=== PATIENT | male | born 1935 | race Two or more races ===

== ENCOUNTER → 2022-04-13 | Outpatient (CLI) | payer OTHER ==
[2022-04-13 12:52] LABS: Mean Corpuscular Volume 78.3 fL (80.0-100.0)
[2022-04-13 12:54] LABS: Hematocrit 37.4 % (41.0-53.0); Hemoglobin 11.9 g/dL (13.5-17.5); Mean Corpuscular Hgb Conc. 31.9 g/dL (32.0-36.0); Red Blood Cells 4.77 10^6/uL (4.5-5.90); White Blood Cell 3.6 10^3/uL (4.4-10.8)
[2022-04-13 12:57] LABS: Urine Bacteria NONE SEEN /hpf (None Seen); Urine Blood Negative /uL (Negative); Urine Specific Gravity 1.017 (1.001-1.035); Urine WBC 1 /hpf (0 - 3)
[2022-04-13 13:27] LABS: Basophils % (manual) 0 (0.0-2.0); Blast Cells 0; Eosinophils % (manual) 0 (0-7); Metamyelocytes % 0; Myelocytes % 0; Promyelocytes % 0; Reactive Lymphocytes 0
[2022-04-13 14:30] LABS: Band Neutrophils % (manual) 1; Lymphocytes % (manual) 56 (10.0-50.0); Monocytes % (manual) 26 (0-12)
[2022-04-13 14:35] LABS: Albumin 3.1 g/dL (3.4-5.0); BUN/Creatinine Ratio 18.9; Bilirubin, Total 0.7 mg/dL (0.2-1.0); Potassium 4.6 mmol/L (3.5-5.1); Total Protein 8.2 g/dL (6.4-8.2)
== END | disposition home or self-care (01) ==
LOC: LAB 12:26
PROVIDERS: ATTEND Student in an Organized Health Care Education/Training Program
DX: I10 Essential (primary) hypertension (principal); E55.9 Vitamin D deficiency, unspecified; E78.5 Hyperlipidemia, unspecified
CPT/HCPCS: 36415; 80053; 80061; 81001; 82306; 84443; 85007; 85027

== ENCOUNTER 2023-03-15 23:59 | Inpatient (IN) | payer OTHER ==
[~2023-03-15] VITALS: Ht 188 cm; Wt 85.6 kg
[2023-03-16] MEDS ORDERED: LABETALOL HCL 5 MG/ML 4ML SYRINGE IV ONE (00:30)
[2023-03-16 00:35] VITALS: PULSE 80; RESP 34; O2SAT 96
[2023-03-16 01:20] LABS: Mean Corpuscular Hgb Conc. 31.1 g/dL (32.0-36.0)
[2023-03-16 01:23] LABS: Hemoglobin 9.9 g/dL (13.5-17.5); Mean Corpuscular Hemoglobin 26.1 pg (28.0-32.0); Mean Corpuscular Volume 84.1 fL (80.0-100.0); Red Cell Distribution Width 19.8 % (11.8-14.3); White Blood Cell 7.9 10^3/uL (4.4-10.8)
[2023-03-16 02:05] LABS: Basophils % (manual) 0 (0.0-2.0); Blast Cells 0; Eosinophils % (manual) 0 (0-7); Myelocytes % 0; Promyelocytes % 0; Reactive Lymphocytes 0
[2023-03-16 02:17] LABS: Alanine Aminotransferase 36 U/L (7-40); Alkaline Phosphatase 100 U/L (46-116); Anion Gap 12 (5-15); Aspartate Aminotransferase 35 U/L (13-40); Blood Urea Nitrogen 16 mg/dL (9-23); Calcium 8.3 mg/dL (8.7-10.4); Carbon Dioxide 20 mmol/L (20-30); Chloride 105 mmol/L (98-107); Glucose 185 mg/dL (74-106); Potassium 3.5 mmol/L (3.5-5.1); Sodium 137 mmol/L (136-145)
[2023-03-16 02:18] LABS: Albumin 3.8 g/dL (3.2-4.8); Bilirubin, Total 0.9 mg/dL (0.2-1.0); Total Protein 7.8 g/dL (5.7-8.2)
[2023-03-16] MEDS ORDERED: FUROSEMIDE 100 MG/10ML VIAL IV ONE (02:30)
[2023-03-16 02:53] LABS: Band Neutrophils % (manual) 1; Lymphocytes % (manual) 34 (10.0-50.0); Metamyelocytes % 3; Monocytes % (manual) 29 (0-12)
[2023-03-16 02:54] LABS: Anisocytosis Slight; Platelet Estimate Decreased
[2023-03-16] MEDS ORDERED: NITROGLYCERIN 0.4 MG SL TAB SL PRN (03:00)
[2023-03-16] MEDS ORDERED: ACETAMINOPHEN 325 MG TAB PO PRN (03:00)
[2023-03-16] MEDS ORDERED: MORPHINE SULFATE INJ 2 MG/ml SYRG IV PRN (03:00)
[2023-03-16] MEDS ORDERED: ONDANSETRON HCL 4 MG/2 ML VIAL IV PRN (03:00)
[2023-03-16 03:56] LABS: Urine Bacteria FEW /hpf (None Seen); Urine Blood Negative /uL (Negative); Urine Clarity Clear (Clear); Urine Color Colorless (Yellow); Urine Protein, UAD 1+ (Negative); Urine Urobilinogen Normal (Negative); Urine WBC 2 /hpf (0 - 3); Urine pH 5.5 (5.0-8.0)
[2023-03-16] MEDS: ENOXAPARIN SOD 40 MG/0.4 ML SYRINGE SC SCH ×2 (10:00→11:13)
[2023-03-16] MEDS ORDERED: FUROSEMIDE 20 MG/2 ML VIAL IV SCH (10:00)
[2023-03-16] MEDS ORDERED: ASPirin 81 mg TAB PO ONE (10:45)
[2023-03-16] MEDS ORDERED: cefTRIAXone 1GM/50ML D5W 50 ML IV ONE (10:45)
[2023-03-16] MEDS ORDERED: METOPROLOL TARTRATE 25 MG TAB PO ONE (10:45)
[2023-03-16] MEDS: LOSARTAN POTASSIUM 50 MG TAB PO SCH (12:04)
[2023-03-16] MEDS ORDERED: POTASSIUM EFFERVESENT TAB 25 MEQ PO ONE (14:45)
[2023-03-16] MEDS: FUROSEMIDE 20 MG/2 ML VIAL IV SCH ×2 (18:54→21:46)
[2023-03-16] MEDS: DONEPEZIL HYDROCHLORIDE 5 MG TAB PO SCH (21:54)
[2023-03-16] MEDS: ATORVASTATIN 20 MG TAB PO SCH (21:55)
[2023-03-16] MEDS: METOPROLOL TARTRATE 25 MG TAB PO SCH (21:56)
[2023-03-16] MEDS ORDERED: METOPROLOL TARTRATE 25 MG TAB PO SCH (22:00)
[2023-03-16 23:30] VITALS: BP 162/92; PULSE 75; RESP 20; TEMP 98; O2SAT 98
[2023-03-16 23:34] VITALS: BP 162/92; PULSE 75; RESP 20; TEMP 98; O2SAT 98
[2023-03-17] MEDS: hydrALAZINE HCL 20 MG/ML VL IV PRN ×3 (00:15→17:31)
[2023-03-17 05:00] VITALS: BP 148/73; PULSE 68; RESP 18; TEMP 97.9; O2SAT 95
[2023-03-17 06:53] LABS: Alanine Aminotransferase 37 U/L (7-40); Albumin 3.9 g/dL (3.2-4.8); Alkaline Phosphatase 92 U/L (46-116); Anion Gap 8 (5-15); Aspartate Aminotransferase 34 U/L (13-40); BUN/Creatinine Ratio 13.7 (10.0-20.0); Bilirubin, Total 1.1 mg/dL (0.2-1.0); Blood Urea Nitrogen 18 mg/dL (9-23); Calcium 8.9 mg/dL (8.7-10.4); Carbon Dioxide 25 mmol/L (20-30); Chloride 104 mmol/L (98-107); Glucose 83 mg/dL (74-106); Magnesium 1.9 mg/dL (1.6-2.6); Potassium 3.6 mmol/L (3.5-5.1); Sodium 137 mmol/L (136-145); Total Protein 7.9 g/dL (5.7-8.2)
[2023-03-17] MEDS: EMPAGLIFLOZIN 10 MG TAB PO SCH (07:00)
[2023-03-17] MEDS ORDERED: ACETYLCYSTEINE ORAL for CIN 20%(200MG/ML) 4ML PO ONE (07:15)
[2023-03-17 07:23] LABS: Hemoglobin 10.3 g/dL (13.5-17.5)
[2023-03-17 07:25] LABS: Hematocrit 31.8 % (41.0-53.0); Mean Corpuscular Hemoglobin 26.4 pg (28.0-32.0); Mean Corpuscular Hgb Conc. 32.3 g/dL (32.0-36.0); Mean Corpuscular Volume 81.5 fL (80.0-100.0); Red Blood Cells 3.89 10^6/uL (4.5-5.90); Red Cell Distribution Width 19.1 % (11.8-14.3); White Blood Cell 5.5 10^3/uL (4.4-10.8)
[2023-03-17 07:29] LABS: Band Neutrophils % (manual) 0; Basophils % (manual) 0 (0.0-2.0); Metamyelocytes % 0
[2023-03-17 07:30] LABS: Blast Cells 0; Myelocytes % 0; Promyelocytes % 0; Reactive Lymphocytes 0
[2023-03-17 08:00] VITALS: PULSE 71; RESP 18
[2023-03-17 09:01] LABS: Eosinophils % (manual) 2 (0-7); Lymphocytes % (manual) 24 (10.0-50.0); Monocytes % (manual) 43 (0-12); Platelet Estimate Decreased
[2023-03-17] MEDS: ASPirin 81 mg TAB PO SCH (09:02)
[2023-03-17] MEDS: LOSARTAN POTASSIUM 50 MG TAB PO SCH (09:06)
[2023-03-17] MEDS: SPIRONOLACTONE 25 MG TAB PO SCH (09:06)
[2023-03-17] MEDS: METOPROLOL TARTRATE 25 MG TAB PO SCH ×2 (09:07→21:25)
[2023-03-17] MEDS: FUROSEMIDE 20 MG/2 ML VIAL IV SCH ×2 (09:08→21:29)
[2023-03-17] MEDS: cefTRIAXone 1GM/50ML D5W 50 ML IV SCH (09:09)
[2023-03-17] MEDS: ENOXAPARIN SOD 40 MG/0.4 ML SYRINGE SC SCH (09:10)
[2023-03-17] MEDS ORDERED: LORazepam 2MG/ML-1ML VIAL IV ONE (11:00)
[2023-03-17] MEDS ORDERED: OLANZapine 5 MG TAB PO ONE (13:15)
[2023-03-17 17:00] VITALS: BP 191/106; PULSE 85; RESP 17; TEMP 97.5; O2SAT 96
[2023-03-17] MEDS: ISOSORBIDE MONONITRATE ER 60 MG TAB PO SCH (17:30)
[2023-03-17 18:50] VITALS: BP 166/86; PULSE 78
[2023-03-17 20:00] VITALS: PULSE 93
[2023-03-17] MEDS: ATORVASTATIN 20 MG TAB PO SCH (21:21)
[2023-03-17] MEDS: DONEPEZIL HYDROCHLORIDE 5 MG TAB PO SCH (21:24)
[2023-03-17 22:00] VITALS: BP 132/69; PULSE 144; RESP 22; TEMP 97.4; O2SAT 93
[2023-03-18] MEDS: EMPAGLIFLOZIN 10 MG TAB PO SCH (06:46)
[2023-03-18 08:00] VITALS: RESP 18
[2023-03-18] MEDS ORDERED: FURO1TAB33 PO (11:25)
[2023-03-18] MEDS ORDERED: LOSA50TA46 PO (11:25)
[2023-03-18] MEDS ORDERED: ISO60SRT PO (11:25)
[2023-03-18] MEDS ORDERED: EMPA1TAB PO (11:25)
[2023-03-18] MEDS ORDERED: MET25T PO (11:25)
[2023-03-18] MEDS ORDERED: ATOR20TA50 PO (11:25)
[2023-03-18] MEDS ORDERED: DONE5TAB80 PO (11:25)
[2023-03-18] MEDS: cefTRIAXone 1GM/50ML D5W 50 ML IV SCH (11:26)
[2023-03-18] MEDS ORDERED: ASPI-325 PO (11:27)
[2023-03-18] MEDS: METOPROLOL TARTRATE 25 MG TAB PO SCH (11:38)
[2023-03-18] MEDS: ASPirin 81 mg TAB PO SCH (11:38)
[2023-03-18] MEDS: ISOSORBIDE MONONITRATE ER 60 MG TAB PO SCH (11:39)
[2023-03-18] MEDS: SPIRONOLACTONE 25 MG TAB PO SCH (11:40)
[2023-03-18] MEDS: LOSARTAN POTASSIUM 50 MG TAB PO SCH (11:40)
[2023-03-18] MEDS: FUROSEMIDE 20 MG/2 ML VIAL IV SCH (11:40)
[2023-03-18 12:24] VITALS: BP 160/70; PULSE 87; RESP 18; TEMP 36.3; O2SAT 98
[2023-03-18 13:15] VITALS: BP 125/62; PULSE 74; RESP 17; TEMP 98.1; O2SAT 94
[2023-03-19] MEDS ORDERED: ENOXAPARIN SOD 40 MG/0.4 ML SYRINGE SC SCH (10:00)
== END 2023-03-18 15:15 | disposition home or self-care (01) | DRG 280 ==
LOC: EDBD 23:59 → ER 03-16 00:01 → TELE 03-16 03:04 → TELE-WESTW 03-16 23:22
PROVIDERS: ADMIT Nurse Practitioner; ATTEND Nurse Practitioner Acute Care
DX: I13.0 Hypertensive heart and chronic kidney disease with heart failure and stage 1 through stage 4 chronic kidney disease, or unspecified chronic kidney disease (principal); I21.A1 Myocardial infarction type 2; I50.23 Acute on chronic systolic (congestive) heart failure; J18.9 Pneumonia, unspecified organism; J96.01 Acute respiratory failure with hypoxia; F02.83 Dementia in other diseases classified elsewhere, unspecified severity, with mood disturbance; N17.9 Acute kidney failure, unspecified; I16.0 Hypertensive urgency; G30.9 Alzheimer's disease, unspecified; N18.31 Chronic kidney disease, stage 3a; Z79.82 Long term (current) use of aspirin; Z79.899 Other long term (current) drug therapy
CPT/HCPCS: 36415; 70450; 71045; 80053; 81001; 83036; 83735; 83880; 84443; 84484; 85007; 85027; 93005; 93306; 96365; 96375; 99291; G0378; J0696; J3490

== ENCOUNTER 2023-04-12 13:47 | Inpatient (IN) | payer OTHER ==
[~2023-04-12] VITALS: Ht 182.9 cm; Wt 82.0 kg
[~2023-04-12 13:47] MED LIST: ASPI-325 PO; ATOR20TA50 PO; DONE5TAB80 PO; EMPA1TAB PO; FURO1TAB33 PO; ISO60SRT PO; LOSA50TA46 PO; MET25T PO
[2023-04-12 14:52] LABS: Alanine Aminotransferase 25 U/L (7-40); Albumin 3.3 g/dL (3.2-4.8); Alkaline Phosphatase 57 U/L (46-116); Anion Gap 9 (5-15); Aspartate Aminotransferase 25 U/L (13-40); Bilirubin, Total 0.4 mg/dL (0.2-1.0); Blood Urea Nitrogen 71 mg/dL (9-23); Calcium 8.4 mg/dL (8.5-10.1); Carbon Dioxide 23 mmol/L (20-30); Chloride 114 mmol/L (98-107); Glucose 152 mg/dL (74-106); Sodium 146 mmol/L (136-145); Total Protein 6.4 g/dL (5.7-8.2)
[2023-04-12] MEDS ORDERED: ENOXAPARIN SOD 80 MG/0.8ML SYRINGE SC ONE (15:30)
[2023-04-12] MEDS ORDERED: FUROSEMIDE 40 MG/4 ML VIAL IV ONE (15:30)
[2023-04-12 15:59] LABS: Hematocrit 20.1 % (41.0-53.0); Mean Corpuscular Hemoglobin 25.6 pg (28.0-32.0); White Blood Cell 7.6 10^3/uL (4.4-10.8)
[2023-04-12 16:01] LABS: Mean Corpuscular Volume 82.4 fL (80.0-100.0); Red Blood Cells 2.44 10^6/uL (4.5-5.90); Red Cell Distribution Width 18.2 % (11.8-14.3)
[2023-04-12 16:33] LABS: Hemoglobin 6.2 g/dL (13.5-17.5)
[2023-04-12 16:35] LABS: Band Neutrophils % (manual) 0; Basophils % (manual) 0 (0.0-2.0); Blast Cells 0; Eosinophils % (manual) 0 (0-7); Metamyelocytes % 0; Myelocytes % 0; Promyelocytes % 0; Reactive Lymphocytes 0
[2023-04-12] MEDS ORDERED: PANTOPRAZOLE 40 MG/10 ML VIAL INJ IV ONE (17:15)
[2023-04-12] MEDS ORDERED: NITROGLYCERIN 0.4 MG SL TAB SL PRN (17:30)
[2023-04-12] MEDS ORDERED: MORPHINE SULFATE INJ 2 MG/ml SYRG IV PRN (17:30)
[2023-04-12] MEDS ORDERED: ACETAMINOPHEN 325 MG TAB PO PRN (17:30)
[2023-04-12] MEDS ORDERED: ALBUTEROL MEDNEB 2.5 mg/3ml NEB NEB PRN ×2 (17:45→18:00)
[2023-04-12 18:58] VITALS: O2SAT 97
[2023-04-12 19:01] LABS: Base Excess -3.2 mmol/L (-2.0-2.0)
[2023-04-12 19:30] LABS: Folate (Folic Acid) 13.23 ng/mL (>5.38)
[2023-04-12 19:50] LABS: Lymphocytes % (manual) 11 (10.0-50.0); Monocytes % (manual) 18 (0-12)
[2023-04-12 19:51] LABS: Platelet Estimate Decreased
[2023-04-12 20:32] VITALS: BP 148/76; PULSE 88; RESP 18; O2SAT 97
[2023-04-12 21:10] VITALS: RESP 20; O2SAT 100
[2023-04-12] MEDS: SOD CHL 0.45% 1,000 ML IV SCH (21:54)
[2023-04-12] MEDS: ATORVASTATIN 20 MG TAB PO SCH (22:36)
[2023-04-12] MEDS: DONEPEZIL HYDROCHLORIDE 5 MG TAB PO SCH (22:36)
[2023-04-12 22:44] VITALS: BP 142/80; PULSE 90; RESP 18; TEMP 97.7; O2SAT 93
[2023-04-12] MEDS: METOPROLOL TARTRATE 25 MG TAB PO SCH (22:44)
[2023-04-12 23:06] VITALS: PULSE 90; RESP 18; O2SAT 93
[2023-04-13] VITALS (16 sets, daily range): BP systolic 124–170; BP diastolic 56–85; PULSE 67–77; RESP 16–22; TEMP 97.6–98.6; O2SAT 91–98
[2023-04-13 01:32] LABS: Urine WBC None Seen /hpf (0 - 3)
[2023-04-13 01:55] LABS: Urine Bacteria FEW /hpf (None Seen); Urine Blood Negative /uL (Negative); Urine Clarity Clear (Clear); Urine Color Colorless (Yellow); Urine Protein, UAD Negative (Negative); Urine Specific Gravity 1.012 (1.001-1.035); Urine Urobilinogen Normal (Negative)
[2023-04-13 01:58] LABS: Amphetamine Screen, Urine Neg (NEGATIVE)
[2023-04-13 01:59] LABS: Barbiturate Scree,Urine Neg (NEGATIVE); Benzodiazephine Screen, Urine Neg (NEGATIVE); Cannabinoid Screen, Urine Neg (NEGATIVE); Cocaine Screen, Urine Neg (NEGATIVE); Opiate Scree,Urine Neg (NEGATIVE); Phencyclidine Screen, Urine Neg (NEGATIVE)
[2023-04-13] MEDS: EMPAGLIFLOZIN 10 MG TAB PO SCH (06:07)
[2023-04-13 06:51] LABS: Mean Corpuscular Volume 81.3 fL (80.0-100.0); Red Blood Cells 2.58 10^6/uL (4.5-5.90); White Blood Cell 6.8 10^3/uL (4.4-10.8)
[2023-04-13 06:54] LABS: Mean Corpuscular Hemoglobin 26.2 pg (28.0-32.0); Mean Corpuscular Hgb Conc. 32.2 g/dL (32.0-36.0); Red Cell Distribution Width 18.1 % (11.8-14.3)
[2023-04-13 06:55] LABS: Alanine Aminotransferase 23 U/L (7-40); Albumin 3.4 g/dL (3.2-4.8); Alkaline Phosphatase 55 U/L (46-116); Anion Gap 8 (5-15); Aspartate Aminotransferase 26 U/L (13-40); BUN/Creatinine Ratio 41.9 (10.0-20.0); Bilirubin, Total 0.8 mg/dL (0.2-1.0); Blood Urea Nitrogen 62 mg/dL (9-23); Calcium 8.6 mg/dL (8.5-10.1); Carbon Dioxide 24 mmol/L (20-30); Chloride 114 mmol/L (98-107); Glucose 110 mg/dL (74-106); Potassium 3.5 mmol/L (3.5-5.1); Sodium 146 mmol/L (136-145); Total Protein 6.7 g/dL (5.7-8.2)
[2023-04-13 07:46] LABS: Hemoglobin 6.8 g/dL (13.5-17.5)
[2023-04-13 07:47] LABS: Band Neutrophils % (manual) 0; Basophils % (manual) 0 (0.0-2.0); Blast Cells 0; Eosinophils % (manual) 0 (0-7); Metamyelocytes % 0; Myelocytes % 0; Promyelocytes % 0; Reactive Lymphocytes 0
[2023-04-13] MEDS: SOD CHL 0.45% 1,000 ML IV SCH (10:10)
[2023-04-13] MEDS: PANTOPRAZOLE 40 MG/10 ML VIAL INJ IV SCH (11:20)
[2023-04-13] MEDS: ISOSORBIDE MONONITRATE ER 60 MG TAB PO SCH (11:21)
[2023-04-13] MEDS: LOSARTAN POTASSIUM 50 MG TAB PO SCH (11:22)
[2023-04-13] MEDS: FUROSEMIDE 20 MG TAB PO SCH (11:23)
[2023-04-13] MEDS: METOPROLOL TARTRATE 25 MG TAB PO SCH ×2 (11:24→22:04)
[2023-04-13 12:01] LABS: Mean Corpuscular Hemoglobin 26.7 pg (28.0-32.0); Mean Corpuscular Hgb Conc. 32.9 g/dL (32.0-36.0); Red Blood Cells 2.35 10^6/uL (4.5-5.90); Red Cell Distribution Width 18.4 % (11.8-14.3); White Blood Cell 5.5 10^3/uL (4.4-10.8)
[2023-04-13 12:05] LABS: Hemoglobin 6.3 g/dL (13.5-17.5)
[2023-04-13 12:06] LABS: Band Neutrophils % (manual) 0; Basophils % (manual) 0 (0.0-2.0); Blast Cells 0; Metamyelocytes % 0; Myelocytes % 0; Promyelocytes % 0; Reactive Lymphocytes 0
[2023-04-13 12:26] LABS: Lymphocytes % (manual) 17 (10.0-50.0); Monocytes % (manual) 30 (0-12)
[2023-04-13 12:27] LABS: Platelet Estimate Decreased
[2023-04-13 13:37] LABS: Eosinophils % (manual) 1 (0-7); Lymphocytes % (manual) 26 (10.0-50.0); Monocytes % (manual) 22 (0-12); Platelet Estimate Decreased
[2023-04-13 14:18] LABS: INR 1.28 (0.9-1.15); Partial Thromboplastin Time 30.1 SEC (24.5-34.5); Prothrombin Time 13.2 sec (9.3-11.8)
[2023-04-13 15:42] LABS: Triglycerides 64 mg/dL (< 150)
[2023-04-13 15:43] LABS: LDL Cholesterol 62 mg/dL (< 100)
[2023-04-13 15:44] LABS: Cholesterol 98 mg/dL (< 200); HDL Cholesterol 24 mg/dL (40-59)
[2023-04-13 15:45] LABS: % Iron Saturation 14.2 % (20-55)
[2023-04-13 18:21] LABS: Hematocrit 24.4 % (41.0-53.0); Mean Corpuscular Hgb Conc. 32.9 g/dL (32.0-36.0); Red Blood Cells 2.98 10^6/uL (4.5-5.90); Red Cell Distribution Width 17.8 % (11.8-14.3); White Blood Cell 4.9 10^3/uL (4.4-10.8)
[2023-04-13 18:26] LABS: Basophils % (manual) 0 (0.0-2.0); Blast Cells 0; Eosinophils % (manual) 0 (0-7); Promyelocytes % 0; Reactive Lymphocytes 0
[2023-04-13 19:07] LABS: Band Neutrophils % (manual) 7; Lymphocytes % (manual) 16 (10.0-50.0); Metamyelocytes % 6; Monocytes % (manual) 9 (0-12); Myelocytes % 2; Platelet Estimate Decreased
[2023-04-13] MEDS: DONEPEZIL HYDROCHLORIDE 5 MG TAB PO SCH (22:00)
[2023-04-13] MEDS: ATORVASTATIN 20 MG TAB PO SCH (22:00)
[2023-04-14] VITALS (8 sets, daily range): BP systolic 135–190; BP diastolic 67–99; PULSE 64–75; RESP 15–18; TEMP 98.1–98.5; O2SAT 96–100
[2023-04-14] MEDS: EMPAGLIFLOZIN 10 MG TAB PO SCH (06:09)
[2023-04-14 06:27] LABS: Hemoglobin 7.8 g/dL (13.5-17.5)
[2023-04-14 06:29] LABS: Hematocrit 24.1 % (41.0-53.0); Mean Corpuscular Hemoglobin 26.7 pg (28.0-32.0); Mean Corpuscular Hgb Conc. 32.5 g/dL (32.0-36.0); Mean Corpuscular Volume 82.2 fL (80.0-100.0); Red Blood Cells 2.93 10^6/uL (4.5-5.90); Red Cell Distribution Width 17.8 % (11.8-14.3); White Blood Cell 5.5 10^3/uL (4.4-10.8)
[2023-04-14 06:39] LABS: Chloride 112 mmol/L (98-107); Potassium 3.7 mmol/L (3.5-5.1); Sodium 144 mmol/L (136-145)
[2023-04-14 06:40] LABS: Anion Gap 8 (5-15); Calcium 8.2 mg/dL (8.7-10.4); Carbon Dioxide 24 mmol/L (20-30)
[2023-04-14 06:45] LABS: BUN/Creatinine Ratio 30.7 (10.0-20.0); Glucose 82 mg/dL (74-106)
[2023-04-14 06:57] LABS: Blood Urea Nitrogen 39 mg/dL (9-23)
[2023-04-14 07:49] LABS: Band Neutrophils % (manual) 0; Basophils % (manual) 0 (0.0-2.0); Blast Cells 0; Promyelocytes % 0; Reactive Lymphocytes 0
[2023-04-14] MEDS: PANTOPRAZOLE 40 MG/10 ML VIAL INJ IV SCH (09:50)
[2023-04-14] MEDS: METOPROLOL TARTRATE 25 MG TAB PO SCH ×2 (09:51→21:55)
[2023-04-14] MEDS: ISOSORBIDE MONONITRATE ER 60 MG TAB PO SCH (09:51)
[2023-04-14] MEDS: FUROSEMIDE 20 MG TAB PO SCH (09:51)
[2023-04-14] MEDS: LOSARTAN POTASSIUM 50 MG TAB PO SCH (09:51)
[2023-04-14 13:41] LABS: Eosinophils % (manual) 4 (0-7); Large Platelets FEW; Lymphocytes % (manual) 21 (10.0-50.0); Metamyelocytes % 2; Monocytes % (manual) 19 (0-12); Myelocytes % 3
[2023-04-14 13:42] LABS: Platelet Estimate Decrea
[2023-04-14] MEDS ORDERED: amLODIPine BESYLATE 5 MG TAB PO ONE (14:15)
[2023-04-14] MEDS ORDERED: SPIRONOLACTONE 25 MG TAB PO ONE (14:45)
[2023-04-14] MEDS: DONEPEZIL HYDROCHLORIDE 5 MG TAB PO SCH (21:54)
[2023-04-14] MEDS: ATORVASTATIN 20 MG TAB PO SCH (21:54)
[2023-04-14] MEDS: SACUBITRIL-VALSARTAN 24mg/26mg TAB PO SCH (21:54)
[2023-04-15 05:00] VITALS: BP 151/80; PULSE 62; RESP 19; O2SAT 98
[2023-04-15 06:04] LABS: Chloride 108 mmol/L (98-107); Potassium 3.4 mmol/L (3.5-5.1); Sodium 141 mmol/L (136-145)
[2023-04-15 06:05] LABS: Anion Gap 8 (5-15); Calcium 8.4 mg/dL (8.5-10.1); Carbon Dioxide 25 mmol/L (20-30)
[2023-04-15 06:10] LABS: BUN/Creatinine Ratio 21.6 (10.0-20.0); Glucose 88 mg/dL (74-106); Hematocrit 26.8 % (41.0-53.0); Hemoglobin 8.6 g/dL (13.5-17.5); Mean Corpuscular Hemoglobin 26.9 pg (28.0-32.0); Mean Corpuscular Hgb Conc. 32.3 g/dL (32.0-36.0); Mean Corpuscular Volume 83.3 fL (80.0-100.0); Red Blood Cells 3.22 10^6/uL (4.5-5.90); Red Cell Distribution Width 18.2 % (11.8-14.3); White Blood Cell 5.4 10^3/uL (4.4-10.8)
[2023-04-15] MEDS: EMPAGLIFLOZIN 10 MG TAB PO SCH (06:24)
[2023-04-15 06:36] LABS: Band Neutrophils % (manual) 0; Basophils % (manual) 0 (0.0-2.0); Blast Cells 0; Metamyelocytes % 0; Myelocytes % 0; Promyelocytes % 0; Reactive Lymphocytes 0
[2023-04-15 06:54] LABS: Blood Urea Nitrogen 25 mg/dL (9-23)
[2023-04-15 08:00] VITALS: PULSE 63
[2023-04-15 09:03] VITALS: BP 162/80; PULSE 53; RESP 19; O2SAT 99
[2023-04-15 09:50] VITALS: O2SAT 97
[2023-04-15] MEDS: SACUBITRIL-VALSARTAN 24mg/26mg TAB PO SCH (09:59)
[2023-04-15] MEDS: PANTOPRAZOLE 40 MG/10 ML VIAL INJ IV SCH (09:59)
[2023-04-15] MEDS: FUROSEMIDE 20 MG TAB PO SCH (09:59)
[2023-04-15 10:00] LABS: Eosinophils % (manual) 2 (0-7); Lymphocytes % (manual) 28 (10.0-50.0); Monocytes % (manual) 27 (0-12)
[2023-04-15] MEDS ORDERED: SPIRONOLACTONE 25 MG TAB PO SCH (10:00)
[2023-04-15] MEDS: METOPROLOL TARTRATE 25 MG TAB PO SCH (10:00)
[2023-04-15] MEDS ORDERED: amLODIPine BESYLATE 5 MG TAB PO SCH ×2 (10:00)
[2023-04-15] MEDS: ISOSORBIDE MONONITRATE ER 60 MG TAB PO SCH (10:00)
[2023-04-15 10:01] LABS: Platelet Estimate Decreased
[2023-04-15] MEDS ORDERED: POTASSIUM EFFERVESENT TAB 25 MEQ PO ONE (10:15)
[2023-04-15] MEDS ORDERED: PANT40TA2 PO (10:45)
[2023-04-15] MEDS ORDERED: SACU1TAB PO (10:45)
[2023-04-15] MEDS ORDERED: FERR-7 PO (10:45)
[2023-04-15] MEDS ORDERED: AML5T PO (10:45)
[2023-04-15] MEDS ORDERED: SPIR25TA PO (10:45)
[2023-04-15 13:00] VITALS: BP 132/64; PULSE 70; RESP 18; O2SAT 97
== END 2023-04-15 15:55 | disposition home or self-care (01) | DRG 291 ==
LOC: ER 13:47 → EDBD 13:47 → TELE-EAST 17:32 → TELE 17:32 → TELE-EAST 22:25
PROVIDERS: ADMIT Internal Medicine; ATTEND Student in an Organized Health Care Education/Training Program
PROC: 30233N1 Transfusion of Nonautologous Red Blood Cells into Peripheral Vein, Percutaneous Approach (ICD-10-PCS; principal; 2023-04-13)
DX: I13.0 Hypertensive heart and chronic kidney disease with heart failure and stage 1 through stage 4 chronic kidney disease, or unspecified chronic kidney disease (principal); I50.43 Acute on chronic combined systolic (congestive) and diastolic (congestive) heart failure; J96.01 Acute respiratory failure with hypoxia; I24.89 Other forms of acute ischemic heart disease; E11.22 Type 2 diabetes mellitus with diabetic chronic kidney disease; D64.9 Anemia, unspecified; F03.90 Unspecified dementia, unspecified severity, without behavioral disturbance, psychotic disturbance, mood disturbance, and anxiety; D69.6 Thrombocytopenia, unspecified; N18.31 Chronic kidney disease, stage 3a; I16.0 Hypertensive urgency; F17.200 Nicotine dependence, unspecified, uncomplicated
CPT/HCPCS: 36415; 36600; 70450; 71045; 76700; 80048; 80053; 80061; 80307; 81001; 82378; 82607; 82728; 82746; 82805; 83540; 83550; 83615; 83880; 84484; 85007; 85027; 85379; 85610; 85730; 86301; 86850; 86870; 86880; 86900; 86901; 86902; 86922; 87081; 96361; 96374; 96375; 97110; 97116; 97163; 97530; C9113; G0378

== ENCOUNTER 2023-06-16 10:37 | Inpatient (IN) | payer OTHER ==
[~2023-06-16] VITALS: Ht 177.8 cm; Wt 86.1 kg
[~2023-06-16 10:37] MED LIST changes: +AML5T PO; +FERR-7 PO; +PANT40TA2 PO; +SACU1TAB PO; +SPIR25TA PO
[2023-06-16 11:01] LABS: Hematocrit 27.7 % (41.0-53.0); Hemoglobin 8.8 g/dL (13.5-17.5); Mean Corpuscular Hgb Conc. 31.6 g/dL (32.0-36.0); Red Blood Cells 3.51 10^6/uL (4.5-5.90); Red Cell Distribution Width 20.1 % (11.8-14.3); White Blood Cell 7.8 10^3/uL (4.4-10.8)
[2023-06-16 11:02] LABS: Basophils % (manual) 0 (0.0-2.0); Blast Cells 0; Metamyelocytes % 0; Myelocytes % 0; Promyelocytes % 0
[2023-06-16 11:16] LABS: Alanine Aminotransferase 18 U/L (7-40); Albumin 3.9 g/dL (3.2-4.8); Alkaline Phosphatase 196 U/L (46-116); Anion Gap 7 (5-15); Aspartate Aminotransferase 27 U/L (13-40); BUN/Creatinine Ratio 10.1 (10.0-20.0); Bilirubin, Total 1.1 mg/dL (0.2-1.0); Blood Urea Nitrogen 12 mg/dL (9-23); Calcium 8.5 mg/dL (8.5-10.1); Carbon Dioxide 25 mmol/L (20-30); Chloride 106 mmol/L (98-107); Glucose 110 mg/dL (74-106); Potassium 3.2 mmol/L (3.5-5.1); Sodium 138 mmol/L (136-145); Total Protein 7.8 g/dL (5.7-8.2)
[2023-06-16 11:34] VITALS: PULSE 72; RESP 15; O2SAT 98
[2023-06-16 11:50] LABS: Urine Epithelial Cast None Seen /hpf (<5)
[2023-06-16 12:02] LABS: Urine Bacteria NONE SEEN /hpf (None Seen); Urine Blood TRACE /uL (Negative); Urine Clarity Clear (Clear); Urine Color Yellow (Yellow); Urine Mucus FEW (None Seen); Urine Protein, UAD 1+ (Negative); Urine Specific Gravity 1.012 (1.001-1.035); Urine Urobilinogen Normal (Negative); Urine WBC 9 /hpf (0 - 3); Urine pH 5.5 (5.0-8.0)
[2023-06-16] MEDS ORDERED: cefTRIAXone 1GM/50ML D5W 50 ML IV ONE (12:15)
[2023-06-16] MEDS ORDERED: POTASSIUM CHL 20MEQ/100ML 100 ML IV ONE (12:30)
[2023-06-16] MEDS ORDERED: NITROGLYCERIN 0.4 MG SL TAB SL PRN (13:00)
[2023-06-16] MEDS ORDERED: SODIUM CHLORIDE 0.9% 1,000 ML IV SCH (13:00)
[2023-06-16] MEDS ORDERED: MORPHINE SULFATE INJ 2 MG/ml SYRG IV PRN (13:00)
[2023-06-16 13:12] LABS: Anisocytosis Slight; Band Neutrophils % (manual) 2; Eosinophils % (manual) 1 (0-7); Hypochromia Slight; Lymphocytes % (manual) 18 (10.0-50.0); Monocytes % (manual) 36 (0-12); Reactive Lymphocytes 1
[2023-06-16 13:13] LABS: Platelet Estimate Decreased
[2023-06-16 13:14] LABS: Tear Drop Cells FEW
[2023-06-16 13:27] LABS: Amphetamine Screen, Urine Neg (NEGATIVE); Barbiturate Scree,Urine Neg (NEGATIVE); Benzodiazephine Screen, Urine Neg (NEGATIVE); Cannabinoid Screen, Urine Neg (NEGATIVE); Cocaine Screen, Urine Neg (NEGATIVE); Opiate Scree,Urine Neg (NEGATIVE); Phencyclidine Screen, Urine Neg (NEGATIVE)
[2023-06-16 13:51] LABS: Anisocytosis Slight; Hypochromia Slight; Platelet Estimate Decreased; Tear Drop Cells FEW
[2023-06-16 14:18] LABS: Nucleated Red Blood Cells % 0.2 %
[2023-06-16] MEDS: hydrALAZINE HCL 20 MG/ML VL IV PRN (14:23)
[2023-06-16] MEDS: LORazepam 2MG/ML-1ML VIAL IV ONE ×2 (16:26→17:27)
[2023-06-16] MEDS ORDERED: METOPROLOL TARTRATE 50 MG TAB PO ONE (16:30)
[2023-06-16] MEDS ORDERED: FUROSEMIDE 40 MG/4 ML VIAL IV ONE ×2 (17:45)
[2023-06-16] MEDS ORDERED: LORazepam 2MG/ML-1ML VIAL IV ONE ×2 (17:45)
[2023-06-16] MEDS ORDERED: QUEtiapine FUMARATE 25 MG TAB PO ONE ×2 (17:45)
[2023-06-16 19:45] VITALS: PULSE 80; RESP 20; O2SAT 98
[2023-06-16] MEDS: SACUBITRIL-VALSARTAN 24mg/26mg TAB PO SCH (22:11)
[2023-06-16] MEDS: DONEPEZIL HYDROCHLORIDE 5 MG TAB PO SCH (22:11)
[2023-06-16] MEDS: METOPROLOL TARTRATE 25 MG TAB PO SCH (22:12)
[2023-06-16] MEDS: ATORVASTATIN 20 MG TAB PO SCH (22:12)
[2023-06-17] MEDS: hydrALAZINE HCL 20 MG/ML VL IV PRN (00:18)
[2023-06-17 06:12] LABS: Alanine Aminotransferase 17 U/L (7-40); Albumin 3.8 g/dL (3.2-4.8); Alkaline Phosphatase 199 U/L (46-116); Anion Gap 8 (5-15); Aspartate Aminotransferase 25 U/L (13-40); BUN/Creatinine Ratio 11.2 (10.0-20.0); Bilirubin, Total 1.3 mg/dL (0.2-1.0); Blood Urea Nitrogen 13 mg/dL (9-23); Calcium 8.3 mg/dL (8.7-10.4); Carbon Dioxide 25 mmol/L (20-30); Chloride 106 mmol/L (98-107); Glucose 87 mg/dL (74-106); Potassium 3.7 mmol/L (3.5-5.1); Sodium 139 mmol/L (136-145); Total Protein 7.7 g/dL (5.7-8.2)
[2023-06-17] MEDS: EMPAGLIFLOZIN 10 MG TAB PO SCH (07:00)
[2023-06-17 07:40] VITALS: PULSE 75; RESP 22; O2SAT 97
[2023-06-17] MEDS ORDERED: AZITHROMYCIN 500MG/ 250ML 250 ML IV ONE (08:30)
[2023-06-17] MEDS ORDERED: CALCIUM GLUC 1,000mg/50ml-NS 50 ML IV ONE (08:45)
[2023-06-17 09:02] LABS: Hematocrit 28.3 % (41.0-53.0)
[2023-06-17 09:03] LABS: Mean Corpuscular Hemoglobin 25.4 pg (28.0-32.0); Mean Corpuscular Hgb Conc. 31.7 g/dL (32.0-36.0); Mean Corpuscular Volume 80.1 fL (80.0-100.0); Red Blood Cells 3.53 10^6/uL (4.5-5.90); White Blood Cell 9.1 10^3/uL (4.4-10.8)
[2023-06-17 09:21] LABS: Red Cell Distribution Width 20.6 % (11.8-14.3)
[2023-06-17 09:24] LABS: Basophils % (manual) 0 (0.0-2.0); Blast Cells 0; Eosinophils % (manual) 0 (0-7); Promyelocytes % 0; Reactive Lymphocytes 0
[2023-06-17] MEDS: cefTRIAXone 1GM/50ML D5W 50 ML IV SCH (09:36)
[2023-06-17 09:37] LABS: INR 1.27 (0.9-1.15); Partial Thromboplastin Time 35.2 SEC (24.5-34.5); Prothrombin Time 13.1 sec (9.3-11.8)
[2023-06-17 09:39] LABS: CRP High Sensitivity 5.53 mg/dL (<1.0)
[2023-06-17] MEDS ORDERED: amLODIPine BESYLATE 5 MG TAB PO SCH (10:00)
[2023-06-17] MEDS ORDERED: LOSARTAN POTASSIUM 50 MG TAB PO SCH (10:00)
[2023-06-17] MEDS ORDERED: FUROSEMIDE 20 MG/2 ML VIAL IV SCH (10:00)
[2023-06-17] MEDS: FERROUS SULFATE 325mg EC TAB PO SCH (10:25)
[2023-06-17] MEDS: PANTOPRAZOLE 40 MG TAB PO SCH (10:25)
[2023-06-17] MEDS: ISOSORBIDE MONONITRATE ER 60 MG TAB PO SCH (10:26)
[2023-06-17] MEDS: ASPirin-EC 81 mg tab PO SCH (10:26)
[2023-06-17] MEDS: METOPROLOL TARTRATE 25 MG TAB PO SCH ×2 (10:28→21:57)
[2023-06-17] MEDS: SACUBITRIL-VALSARTAN 24mg/26mg TAB PO SCH ×2 (10:36→21:55)
[2023-06-17] MEDS: AZITHROMYCIN 500MG/ 250ML 250 ML IV SCH (10:37)
[2023-06-17 10:41] LABS: Magnesium 1.9 mg/dL (1.6-2.6)
[2023-06-17] MEDS: amLODIPine BESYLATE 5 MG TAB PO SCH (11:44)
[2023-06-17] MEDS: SPIRONOLACTONE 25 MG TAB PO SCH (11:45)
[2023-06-17 12:32] LABS: Band Neutrophils % (manual) 6; Lymphocytes % (manual) 14 (10.0-50.0); Metamyelocytes % 6; Monocytes % (manual) 13 (0-12); Myelocytes % 2; Platelet Estimate Decreased
[2023-06-17 19:30] VITALS: PULSE 82; RESP 20; O2SAT 96
[2023-06-17] MEDS: ATORVASTATIN 20 MG TAB PO SCH (21:56)
[2023-06-17] MEDS: DONEPEZIL HYDROCHLORIDE 5 MG TAB PO SCH (21:57)
[2023-06-18 05:24] LABS: Hemoglobin 9.5 g/dL (13.5-17.5); Mean Corpuscular Hemoglobin 25.2 pg (28.0-32.0); Red Blood Cells 3.77 10^6/uL (4.5-5.90); White Blood Cell 8.5 10^3/uL (4.4-10.8)
[2023-06-18 05:26] LABS: Hematocrit 29.8 % (41.0-53.0); Mean Corpuscular Volume 78.9 fL (80.0-100.0)
[2023-06-18 05:28] LABS: Red Cell Distribution Width 20.2 % (11.8-14.3)
[2023-06-18 05:30] LABS: Basophils % (manual) 0 (0.0-2.0); Blast Cells 0; Eosinophils % (manual) 0 (0-7); Metamyelocytes % 0; Myelocytes % 0; Promyelocytes % 0; Reactive Lymphocytes 0
[2023-06-18 05:32] LABS: Alanine Aminotransferase 20 U/L (7-40); Albumin 3.6 g/dL (3.2-4.8); Alkaline Phosphatase 210 U/L (46-116); Anion Gap 8 (5-15); Aspartate Aminotransferase 30 U/L (13-40); BUN/Creatinine Ratio 11.3 (10.0-20.0); Blood Urea Nitrogen 12 mg/dL (9-23); Calcium 8.3 mg/dL (8.5-10.1); Carbon Dioxide 26 mmol/L (20-30); Chloride 106 mmol/L (98-107); Glucose 85 mg/dL (74-106); Potassium 3.3 mmol/L (3.5-5.1); Sodium 140 mmol/L (136-145)
[2023-06-18 05:33] LABS: Bilirubin, Total 1.2 mg/dL (0.2-1.0); Total Protein 7.2 g/dL (5.7-8.2)
[2023-06-18 05:40] LABS: Magnesium 1.8 mg/dL (1.6-2.6)
[2023-06-18] MEDS: EMPAGLIFLOZIN 10 MG TAB PO SCH (06:31)
[2023-06-18 08:15] LABS: Lymphocytes % (manual) 12 (10.0-50.0)
[2023-06-18] MEDS: POTASSIUM CHL 20MEQ/100ML 100 ML IV SCH ×2 (08:15→10:15)
[2023-06-18 08:16] LABS: Band Neutrophils % (manual) 4; Monocytes % (manual) 36 (0-12)
[2023-06-18 08:17] LABS: Anisocytosis Slight; Platelet Estimate Decreased; Tear Drop Cells FEW
[2023-06-18] MEDS: cefTRIAXone 1GM/50ML D5W 50 ML IV SCH (08:45)
[2023-06-18] MEDS: MAGNESIUM SULFATE 1GM/100ML 100 ML IV SCH ×2 (08:45→10:00)
[2023-06-18] MEDS ORDERED: POTASSIUM EFFERVESENT TAB 25 MEQ PO ONE (09:15)
[2023-06-18] MEDS ORDERED: CALCIUM GLUC 1,000mg/50ml-NS 50 ML IV ONE (09:15)
[2023-06-18] MEDS: amLODIPine BESYLATE 5 MG TAB PO SCH (10:00)
[2023-06-18] MEDS: ASPirin-EC 81 mg tab PO SCH (10:00)
[2023-06-18] MEDS: ISOSORBIDE MONONITRATE ER 60 MG TAB PO SCH (10:00)
[2023-06-18] MEDS: POTASSIUM CHL 20 Meq TABLET PO SCH (10:00)
[2023-06-18] MEDS: AZITHROMYCIN 500MG/ 250ML 250 ML IV SCH (10:00)
[2023-06-18] MEDS: SPIRONOLACTONE 25 MG TAB PO SCH (10:00)
[2023-06-18] MEDS: PANTOPRAZOLE 40 MG TAB PO SCH (10:00)
[2023-06-18] MEDS: FERROUS SULFATE 325mg EC TAB PO SCH (10:00)
[2023-06-18] MEDS: METOPROLOL TARTRATE 25 MG TAB PO SCH (10:00)
[2023-06-18] MEDS: SACUBITRIL-VALSARTAN 24mg/26mg TAB PO SCH ×2 (10:00→22:02)
[2023-06-18] MEDS ORDERED: AMLO1TAB23 PO (11:52)
[2023-06-18] MEDS ORDERED: AZIT-81 PO (11:52)
[2023-06-18] MEDS ORDERED: SPIR25TA PO (11:52)
[2023-06-18] MEDS ORDERED: FUROSEMIDE 20 MG/2 ML VIAL IV SCH (18:00)
[2023-06-18 20:00] VITALS: BP 125/65; PULSE 72; PULSE 76; PULSE 81; RESP 18; TEMP 37.1
[2023-06-18 22:00] VITALS: BP 144/76; PULSE 90; RESP 18; O2SAT 98
[2023-06-18] MEDS ORDERED: CARVEDILOL 3.125 MG TAB PO SCH (22:00)
[2023-06-18] MEDS: DONEPEZIL HYDROCHLORIDE 5 MG TAB PO SCH (22:02)
[2023-06-18] MEDS: ATORVASTATIN 20 MG TAB PO SCH (22:02)
[2023-06-19] VITALS (7 sets, daily range): BP systolic 151–207; BP diastolic 64–82; PULSE 65–104; RESP 16–20; TEMP 98.3–99.6; O2SAT 93–97
[2023-06-19 02:39] LABS: COVID19 ANTIGEN SOFIA FIA NEGATIVE (NEGATIVE)
[2023-06-19] MEDS: EMPAGLIFLOZIN 10 MG TAB PO SCH (05:41)
[2023-06-19 06:02] LABS: White Blood Cell 16.7 10^3/uL (4.4-10.8)
[2023-06-19 06:05] LABS: Hematocrit 31.7 % (41.0-53.0); Hemoglobin 10.2 g/dL (13.5-17.5); Mean Corpuscular Hemoglobin 25.4 pg (28.0-32.0); Mean Corpuscular Hgb Conc. 32.2 g/dL (32.0-36.0); Mean Corpuscular Volume 78.9 fL (80.0-100.0); Red Blood Cells 4.02 10^6/uL (4.5-5.90)
[2023-06-19 06:16] LABS: Red Cell Distribution Width 20.3 % (11.8-14.3)
[2023-06-19 06:17] LABS: Basophils % (manual) 0 (0.0-2.0); Blast Cells 0; Eosinophils % (manual) 0 (0-7); Metamyelocytes % 0; Myelocytes % 0; Promyelocytes % 0; Reactive Lymphocytes 0
[2023-06-19 06:23] LABS: INR 1.35 (0.9-1.15); Partial Thromboplastin Time 40.4 SEC (24.5-34.5); Prothrombin Time 13.9 sec (9.3-11.8)
[2023-06-19 06:38] LABS: Alanine Aminotransferase 17 U/L (7-40); Alkaline Phosphatase 213 U/L (46-116); Anion Gap 12 (5-15); Aspartate Aminotransferase 31 U/L (13-40); Blood Urea Nitrogen 13 mg/dL (9-23); Calcium 8.6 mg/dL (8.5-10.1); Carbon Dioxide 21 mmol/L (20-30); Chloride 107 mmol/L (98-107); Glucose 74 mg/dL (74-106); Potassium 3.3 mmol/L (3.5-5.1); Sodium 140 mmol/L (136-145)
[2023-06-19 06:39] LABS: Albumin 3.9 g/dL (3.2-4.8); CRP High Sensitivity > 1.00 mg/dL (<1.0)
[2023-06-19 06:40] LABS: Bilirubin, Total 1.3 mg/dL (0.2-1.0); Total Protein 8.1 g/dL (5.7-8.2)
[2023-06-19 08:19] LABS: Band Neutrophils % (manual) 2; Lymphocytes % (manual) 6 (10.0-50.0); Monocytes % (manual) 49 (0-12)
[2023-06-19 08:21] LABS: Anisocytosis Slight
[2023-06-19 08:22] LABS: Large Platelets FEW; Platelet Estimate Decreased; Tear Drop Cells FEW
[2023-06-19] MEDS: cefTRIAXone 1GM/50ML D5W 50 ML IV SCH (08:42)
[2023-06-19] MEDS: hydrALAZINE HCL 20 MG/ML VL IV PRN ×2 (09:05→22:52)
[2023-06-19] MEDS: SACUBITRIL-VALSARTAN 24mg/26mg TAB PO SCH ×2 (09:55→21:12)
[2023-06-19] MEDS: ACETAMINOPHEN 325 MG TAB PO PRN (09:55)
[2023-06-19] MEDS: CARVEDILOL 3.125 MG TAB PO SCH ×2 (09:58→22:42)
[2023-06-19] MEDS: PANTOPRAZOLE 40 MG TAB PO SCH (09:59)
[2023-06-19] MEDS: POTASSIUM CHL 20 Meq TABLET PO SCH (09:59)
[2023-06-19] MEDS: amLODIPine BESYLATE 5 MG TAB PO SCH (09:59)
[2023-06-19] MEDS: ASPirin-EC 81 mg tab PO SCH (09:59)
[2023-06-19] MEDS: SPIRONOLACTONE 25 MG TAB PO SCH (10:00)
[2023-06-19] MEDS: ISOSORBIDE MONONITRATE ER 60 MG TAB PO SCH (10:00)
[2023-06-19] MEDS ORDERED: POTASSIUM CHL 20 Meq TABLET PO ONE (10:00)
[2023-06-19] MEDS: FUROSEMIDE 40 MG TAB PO SCH (10:00)
[2023-06-19] MEDS: FERROUS SULFATE 325mg EC TAB PO SCH (10:01)
[2023-06-19] MEDS: AZITHROMYCIN 500MG/ 250ML 250 ML IV SCH (10:01)
[2023-06-19] MEDS: ATORVASTATIN 20 MG TAB PO SCH (21:12)
[2023-06-19] MEDS: DONEPEZIL HYDROCHLORIDE 5 MG TAB PO SCH (21:12)
[2023-06-20] VITALS (7 sets, daily range): BP systolic 129–173; BP diastolic 62–83; PULSE 86–90; RESP 18–20; TEMP 97.4–99.2; O2SAT 95–96
[2023-06-20] MEDS: ACETAMINOPHEN 325 MG TAB PO PRN (00:36)
[2023-06-20 01:44] LABS: Rapid Influenza A Negative (Negative); Rapid Influenza B Negative (Negative)
[2023-06-20 05:49] LABS: Hematocrit 31.8 % (41.0-53.0)
[2023-06-20 05:51] LABS: Hemoglobin 10.1 g/dL (13.5-17.5); Mean Corpuscular Hemoglobin 24.8 pg (28.0-32.0); Mean Corpuscular Hgb Conc. 31.8 g/dL (32.0-36.0); Mean Corpuscular Volume 78.2 fL (80.0-100.0); Red Blood Cells 4.07 10^6/uL (4.5-5.90)
[2023-06-20 05:58] LABS: Basophils % (manual) 0 (0.0-2.0); Blast Cells 0; Eosinophils % (manual) 0 (0-7); Metamyelocytes % 0; Promyelocytes % 0; Reactive Lymphocytes 0; Red Cell Distribution Width 20.5 % (11.8-14.3)
[2023-06-20 06:09] LABS: Alanine Aminotransferase 21 U/L (7-40); Albumin 3.6 g/dL (3.2-4.8); Alkaline Phosphatase 189 U/L (46-116); Anion Gap 8 (5-15); Aspartate Aminotransferase 33 U/L (13-40); BUN/Creatinine Ratio 14.4 (10.0-20.0); Bilirubin, Total 0.8 mg/dL (0.2-1.0); Blood Urea Nitrogen 22 mg/dL (9-23); Calcium 8.5 mg/dL (8.5-10.1); Carbon Dioxide 24 mmol/L (20-30); Chloride 106 mmol/L (98-107); Glucose 147 mg/dL (74-106); Potassium 3.5 mmol/L (3.5-5.1); Sodium 138 mmol/L (136-145); Total Protein 7.5 g/dL (5.7-8.2)
[2023-06-20 06:16] LABS: Band Neutrophils % (manual) 4; Lymphocytes % (manual) 9 (10.0-50.0); Monocytes % (manual) 31 (0-12); Myelocytes % 1
[2023-06-20 06:17] LABS: Anisocytosis Slight; Hypochromia Slight; Large Platelets FEW; Platelet Estimate Decreased
[2023-06-20 06:18] LABS: Giant Platelets Few
[2023-06-20] MEDS: EMPAGLIFLOZIN 10 MG TAB PO SCH (06:41)
[2023-06-20] MEDS: cefTRIAXone 1GM/50ML D5W 50 ML IV SCH (09:05)
[2023-06-20] MEDS: FERROUS SULFATE 325mg EC TAB PO SCH (09:09)
[2023-06-20] MEDS: POTASSIUM CHL 20 Meq TABLET PO SCH (09:10)
[2023-06-20] MEDS: ISOSORBIDE MONONITRATE ER 60 MG TAB PO SCH (09:10)
[2023-06-20] MEDS: ASPirin-EC 81 mg tab PO SCH (09:11)
[2023-06-20] MEDS: PANTOPRAZOLE 40 MG TAB PO SCH (09:11)
[2023-06-20] MEDS: SPIRONOLACTONE 25 MG TAB PO SCH (09:11)
[2023-06-20] MEDS: amLODIPine BESYLATE 5 MG TAB PO SCH (09:12)
[2023-06-20] MEDS: FUROSEMIDE 40 MG TAB PO SCH (09:12)
[2023-06-20] MEDS: CARVEDILOL 3.125 MG TAB PO SCH ×2 (09:13→21:50)
[2023-06-20] MEDS: SACUBITRIL-VALSARTAN 24mg/26mg TAB PO SCH ×2 (09:22→21:49)
[2023-06-20] MEDS: AZITHROMYCIN 500MG/ 250ML 250 ML IV SCH (10:05)
[2023-06-20] MEDS: hydrALAZINE HCL 25 MG TAB PO SCH ×3 (15:08→22:00)
[2023-06-20] MEDS: DONEPEZIL HYDROCHLORIDE 5 MG TAB PO SCH (21:49)
[2023-06-20] MEDS: ATORVASTATIN 20 MG TAB PO SCH (21:49)
[2023-06-21] VITALS (7 sets, daily range): BP systolic 102–147; BP diastolic 48–83; PULSE 69–89; RESP 18–20; TEMP 97.6–97.9; O2SAT 92–100
[2023-06-21] MEDS: EMPAGLIFLOZIN 10 MG TAB PO SCH (05:54)
[2023-06-21] MEDS: hydrALAZINE HCL 25 MG TAB PO SCH ×3 (05:54→22:02)
[2023-06-21 06:16] LABS: Hemoglobin 10.4 g/dL (13.5-17.5); Mean Corpuscular Hgb Conc. 31.2 g/dL (32.0-36.0)
[2023-06-21 06:20] LABS: Hematocrit 33.4 % (41.0-53.0); Mean Corpuscular Hemoglobin 24.7 pg (28.0-32.0); Mean Corpuscular Volume 79.1 fL (80.0-100.0); Red Blood Cells 4.22 10^6/uL (4.5-5.90)
[2023-06-21 06:29] LABS: Band Neutrophils % (manual) 0; Basophils % (manual) 0 (0.0-2.0); Blast Cells 0; Eosinophils % (manual) 0 (0-7); Metamyelocytes % 0; Promyelocytes % 0; Reactive Lymphocytes 0; Red Cell Distribution Width 21.1 % (11.8-14.3)
[2023-06-21 06:37] LABS: Alanine Aminotransferase 31 U/L (7-40); Alkaline Phosphatase 189 U/L (46-116); Anion Gap 12 (5-15); BUN/Creatinine Ratio 14.8 (10.0-20.0); Blood Urea Nitrogen 26 mg/dL (9-23); Calcium 8.8 mg/dL (8.5-10.1); Carbon Dioxide 20 mmol/L (20-30); Chloride 105 mmol/L (98-107); Glucose 106 mg/dL (74-106); Potassium 4.1 mmol/L (3.5-5.1); Sodium 137 mmol/L (136-145)
[2023-06-21 06:39] LABS: Albumin 3.8 g/dL (3.2-4.8); Aspartate Aminotransferase 58 U/L (13-40); Bilirubin, Total 0.6 mg/dL (0.2-1.0); Total Protein 7.9 g/dL (5.7-8.2)
[2023-06-21 06:47] LABS: CRP High Sensitivity > 20.00 mg/dL (<1.0)
[2023-06-21 07:21] LABS: Magnesium 2.3 mg/dL (1.6-2.6)
[2023-06-21] MEDS: cefTRIAXone 1GM/50ML D5W 50 ML IV SCH (07:58)
[2023-06-21 08:40] LABS: Lymphocytes % (manual) 8 (10.0-50.0); Monocytes % (manual) 21 (0-12); Myelocytes % 4; Platelet Estimate Decreased
[2023-06-21] MEDS: AZITHROMYCIN 500MG/ 250ML 250 ML IV SCH (09:22)
[2023-06-21] MEDS: FERROUS SULFATE 325mg EC TAB PO SCH (09:22)
[2023-06-21] MEDS: ASPirin-EC 81 mg tab PO SCH (09:23)
[2023-06-21] MEDS: SACUBITRIL-VALSARTAN 24mg/26mg TAB PO SCH ×2 (09:23→22:00)
[2023-06-21] MEDS: SPIRONOLACTONE 25 MG TAB PO SCH (09:23)
[2023-06-21] MEDS: FUROSEMIDE 40 MG TAB PO SCH (09:24)
[2023-06-21] MEDS: POTASSIUM CHL 20 Meq TABLET PO SCH (09:24)
[2023-06-21] MEDS: ISOSORBIDE MONONITRATE ER 60 MG TAB PO SCH (09:24)
[2023-06-21] MEDS: PANTOPRAZOLE 40 MG TAB PO SCH (09:25)
[2023-06-21] MEDS: amLODIPine BESYLATE 5 MG TAB PO SCH (09:25)
[2023-06-21] MEDS: CARVEDILOL 3.125 MG TAB PO SCH ×2 (10:07→22:01)
[2023-06-21] MEDS: ATORVASTATIN 20 MG TAB PO SCH (21:59)
[2023-06-21] MEDS: DONEPEZIL HYDROCHLORIDE 5 MG TAB PO SCH (22:00)
[2023-06-22 05:00] VITALS: BP 123/67; PULSE 77; RESP 18; TEMP 97.7; O2SAT 92
[2023-06-22] MEDS: hydrALAZINE HCL 25 MG TAB PO SCH ×2 (05:56→15:19)
[2023-06-22] MEDS: EMPAGLIFLOZIN 10 MG TAB PO SCH (05:57)
[2023-06-22 08:00] VITALS: PULSE 60
[2023-06-22 08:17] VITALS: BP 135/81; PULSE 110; RESP 20; TEMP 98.4; O2SAT 95
[2023-06-22] MEDS: cefTRIAXone 1GM/50ML D5W 50 ML IV SCH (08:17)
[2023-06-22 08:32] LABS: Hematocrit 33.4 % (41.0-53.0); Hemoglobin 10.1 g/dL (13.5-17.5); Mean Corpuscular Hemoglobin 24.5 pg (28.0-32.0); Mean Corpuscular Hgb Conc. 30.3 g/dL (32.0-36.0); Mean Corpuscular Volume 80.7 fL (80.0-100.0); Red Blood Cells 4.14 10^6/uL (4.5-5.90); Red Cell Distribution Width 20.6 % (11.8-14.3); White Blood Cell 13.4 10^3/uL (4.4-10.8)
[2023-06-22 08:34] LABS: Band Neutrophils % (manual) 0; Basophils % (manual) 0 (0.0-2.0); Blast Cells 0; Eosinophils % (manual) 0 (0-7); Metamyelocytes % 0; Myelocytes % 0; Promyelocytes % 0; Reactive Lymphocytes 0
[2023-06-22 08:52] VITALS: BP 135/95; PULSE 110; RESP 20; TEMP 98.4; O2SAT 95
[2023-06-22 08:57] LABS: Lymphocytes % (manual) 17 (10.0-50.0); Monocytes % (manual) 12 (0-12)
[2023-06-22 08:58] LABS: Platelet Estimate Decreased
[2023-06-22] MEDS ORDERED: CAR3125T PO (09:15)
[2023-06-22] MEDS ORDERED: HYDR25TA87 PO (09:15)
[2023-06-22 09:50] LABS: Alanine Aminotransferase 44 U/L (7-40); Albumin 3.7 g/dL (3.2-4.8); Alkaline Phosphatase 187 U/L (46-116); Anion Gap 13 (5-15); Aspartate Aminotransferase 85 U/L (13-40); Bilirubin, Total 0.4 mg/dL (0.2-1.0); Blood Urea Nitrogen 25 mg/dL (9-23); Calcium 8.1 mg/dL (8.5-10.1); Carbon Dioxide 17 mmol/L (20-30); Chloride 109 mmol/L (98-107); Glucose 94 mg/dL (74-106); Potassium 3.6 mmol/L (3.5-5.1); Sodium 139 mmol/L (136-145); Total Protein 7.8 g/dL (5.7-8.2)
[2023-06-22 09:59] LABS: CRP High Sensitivity 16.74 mg/dL (<1.0)
[2023-06-22] MEDS ORDERED: AZITHROMYCIN 250 MG TAB PO SCH (10:00)
[2023-06-22] MEDS: SPIRONOLACTONE 25 MG TAB PO SCH (10:09)
[2023-06-22] MEDS: FERROUS SULFATE 325mg EC TAB PO SCH (10:09)
[2023-06-22] MEDS: ASPirin-EC 81 mg tab PO SCH (10:10)
[2023-06-22] MEDS: CARVEDILOL 3.125 MG TAB PO SCH (10:10)
[2023-06-22] MEDS: SACUBITRIL-VALSARTAN 24mg/26mg TAB PO SCH (10:10)
[2023-06-22] MEDS: ISOSORBIDE MONONITRATE ER 60 MG TAB PO SCH (10:11)
[2023-06-22] MEDS: amLODIPine BESYLATE 5 MG TAB PO SCH (10:12)
[2023-06-22] MEDS: PANTOPRAZOLE 40 MG TAB PO SCH (10:12)
[2023-06-22] MEDS: FUROSEMIDE 40 MG TAB PO SCH (10:12)
[2023-06-22] MEDS: POTASSIUM CHL 20 Meq TABLET PO SCH (10:13)
[2023-06-22 10:54] VITALS: BP 135/81; PULSE 110; RESP 20; TEMP 98.4; O2SAT 95
[2023-06-22 13:00] VITALS: BP 106/46; PULSE 74; RESP 15; TEMP 98.4; O2SAT 97
== END 2023-06-22 16:54 | disposition home or self-care (01) | DRG 871 ==
LOC: EDUNIT# 10:37 → EDBD 10:37 → ER 10:37 → TELE 12:50 → TELE-WESTW 06-18 14:57
PROVIDERS: ADMIT Internal Medicine; ATTEND Internal Medicine
DX: A41.9 Sepsis, unspecified organism (principal); G93.41 Metabolic encephalopathy; J69.0 Pneumonitis due to inhalation of food and vomit; J96.00 Acute respiratory failure, unspecified whether with hypoxia or hypercapnia; I21.A1 Myocardial infarction type 2; I50.43 Acute on chronic combined systolic (congestive) and diastolic (congestive) heart failure; N30.00 Acute cystitis without hematuria; I13.0 Hypertensive heart and chronic kidney disease with heart failure and stage 1 through stage 4 chronic kidney disease, or unspecified chronic kidney disease; I47.10 Supraventricular tachycardia, unspecified; Z20.822 Contact with and (suspected) exposure to COVID-19; D50.9 Iron deficiency anemia, unspecified; E78.5 Hyperlipidemia, unspecified; E87.6 Hypokalemia; N18.30 Chronic kidney disease, stage 3 unspecified; G30.9 Alzheimer's disease, unspecified; F02.80 Dementia in other diseases classified elsewhere, unspecified severity, without behavioral disturbance, psychotic disturbance, mood disturbance, and anxiety; D69.6 Thrombocytopenia, unspecified
CPT/HCPCS: 36415; 70450; 71045; 73560; 80053; 80061; 80307; 80320; 81001; 82140; 82306; 82607; 82746; 83036; 83540; 83550; 83605; 83615; 83735; 83880; 84443; 84484; 85007; 85027; 85045; 85610; 85730; 86141; 87040; 87086; 87426; 87804; 92610; 93005; 97110; 97116; 97163; 97530; G0378; J3480

== ENCOUNTER 2023-07-15 11:21 | Inpatient (IN) | payer OTHER ==
[~2023-07-15] VITALS: Ht 175.3 cm; Wt 84.5 kg
[~2023-07-15 11:21] MED LIST changes: -AML5T PO; +AMLO1TAB23 PO; +AZIT-81 PO; +CAR3125T PO; +HYDR25TA87 PO; -LOSA50TA46 PO; -MET25T PO
[2023-07-15 13:03] LABS: Red Blood Cells 3.52 10^6/uL (4.5-5.90)
[2023-07-15 13:07] LABS: Hematocrit 25.8 % (41.0-53.0); Hemoglobin 8.4 g/dL (13.5-17.5); Mean Corpuscular Hemoglobin 23.9 pg (28.0-32.0); Mean Corpuscular Hgb Conc. 32.6 g/dL (32.0-36.0); Mean Corpuscular Volume 73.4 fL (80.0-100.0); White Blood Cell 17.1 10^3/uL (4.4-10.8)
[2023-07-15 13:19] LABS: Alanine Aminotransferase 36 U/L (7-40); Albumin 3.8 g/dL (3.2-4.8); Anion Gap 12 (5-15); Aspartate Aminotransferase 100 U/L (13-40); BUN/Creatinine Ratio 25.6 (10.0-20.0); Bilirubin, Total 0.7 mg/dL (0.2-1.0); Blood Urea Nitrogen 42 mg/dL (9-23); Calcium 6.8 mg/dL (8.7-10.4); Carbon Dioxide 23 mmol/L (20-30); Chloride 107 mmol/L (98-107); Glucose 122 mg/dL (74-106); Magnesium 1.5 mg/dL (1.6-2.6); Potassium 3.6 mmol/L (3.5-5.1); Sodium 142 mmol/L (136-145); Total Protein 7.1 g/dL (5.7-8.2)
[2023-07-15 13:25] LABS: Red Cell Distribution Width 21.1 % (11.8-14.3)
[2023-07-15 13:26] LABS: Band Neutrophils % (manual) 3; Basophils % (manual) 0 (0.0-2.0); Blast Cells 0; Eosinophils % (manual) 0 (0-7); Lymphocytes % (manual) 30 (10.0-50.0); Metamyelocytes % 0; Monocytes % (manual) 16 (0-12); Myelocytes % 0; Platelet Estimate Markedly Decreased; Promyelocytes % 0; Reactive Lymphocytes 0
[2023-07-15 13:27] LABS: Alkaline Phosphatase 1281 U/L (46-116); Anisocytosis Slight; Hypochromia Moderate
[2023-07-15 13:56] LABS: Blood Alcohol < 3.0 mg/dL (<10)
[2023-07-15] MEDS ORDERED: HYDROcodone-ACET 5/325MG TAB PO PRN (16:15)
[2023-07-15] MEDS ORDERED: ACETAMINOPHEN 325 MG TAB PO PRN (16:15)
[2023-07-15] MEDS ORDERED: ONDANSETRON HCL 4 MG/2 ML VIAL IV PRN (16:15)
[2023-07-15] MEDS: AZITHROMYCIN 500MG/ 250ML 250 ML IV SCH (16:15)
[2023-07-15] MEDS: SENNA 8.6 MG TAB PO SCH (16:30)
[2023-07-15] MEDS: POLYETHYLENE GLYCOL 17 GM PWDR PO SCH (16:30)
[2023-07-15 17:03] LABS: INR 1.4 (0.9-1.15); Prothrombin Time 14.4 sec (9.3-11.8)
[2023-07-15 17:14] LABS: % Iron Saturation 28.3 % (20-55)
[2023-07-15] MEDS: DOCUSATE SOD 100 MG CAP PO SCH (17:25)
[2023-07-15] MEDS: SODIUM CHLORIDE 0.9% 500 ML IVB ONE (17:27)
[2023-07-15] MEDS: MAGNESIUM SULFATE 1GM/100ML 100 ML IV SCH ×2 (17:27→18:45)
[2023-07-15 17:29] VITALS: PULSE 93; RESP 17; O2SAT 97
[2023-07-15 18:29] LABS: Amphetamine Screen, Urine Neg (NEGATIVE)
[2023-07-15 18:30] LABS: Barbiturate Scree,Urine Neg (NEGATIVE); Benzodiazephine Screen, Urine Neg (NEGATIVE); Cannabinoid Screen, Urine Neg (NEGATIVE); Cocaine Screen, Urine Neg (NEGATIVE); Creatinine, Urine 108.38 mg/dL (30.0-125.0); Opiate Scree,Urine Neg (NEGATIVE); Phencyclidine Screen, Urine Neg (NEGATIVE)
[2023-07-15 18:35] LABS: Urine Bacteria NONE SEEN /hpf (None Seen); Urine Blood TRACE /uL (Negative); Urine Clarity HAZY (Clear); Urine Color Yellow (Yellow); Urine Protein, UAD 2+ (Negative); Urine Urobilinogen Normal (Negative); Urine WBC 3 /hpf (0 - 3); Urine pH 5.5 (5.0-8.0)
[2023-07-15] MEDS: MAGNESIUM SULFATE 1GM/100ML 0 ML IV ONE (18:47)
[2023-07-15] MEDS: cefTRIAXone 1GM/50ML D5W 50 ML IV ONE (20:28)
[2023-07-15] MEDS: SODIUM CHLOR 0.9% PF (SALINE LOCK) 10ML VIAL/SYR IV SCH (21:16)
[2023-07-15 23:00] VITALS: BP 150/83; PULSE 95; RESP 20; TEMP 98.7
[2023-07-15 23:23] VITALS: BP 144/88; PULSE 92; RESP 18; TEMP 98.7
[2023-07-16] VITALS (9 sets, daily range): BP systolic 146–177; BP diastolic 71–92; PULSE 83–105; RESP 18–21; TEMP 98–100.9; O2SAT 95–97
[2023-07-16 14:08] LABS: Hemoglobin 7.8 g/dL (13.5-17.5)
[2023-07-16 14:11] LABS: Hematocrit 23.8 % (41.0-53.0); Mean Corpuscular Hemoglobin 23.7 pg (28.0-32.0); Mean Corpuscular Hgb Conc. 32.9 g/dL (32.0-36.0); Mean Corpuscular Volume 72.1 fL (80.0-100.0); Red Cell Distribution Width 21.4 % (11.8-14.3); White Blood Cell 9.9 10^3/uL (4.4-10.8)
[2023-07-16 14:12] LABS: Basophils % (manual) 0 (0.0-2.0); Blast Cells 0; Myelocytes % 0; Promyelocytes % 0; Reactive Lymphocytes 0
[2023-07-16 14:26] LABS: Alanine Aminotransferase 35 U/L (7-40); Albumin 3.6 g/dL (3.2-4.8); Anion Gap 12 (5-15); Aspartate Aminotransferase 163 U/L (13-40); Bilirubin, Total 0.6 mg/dL (0.2-1.0); Blood Urea Nitrogen 40 mg/dL (9-23); Calcium 6.6 mg/dL (8.5-10.1); Carbon Dioxide 24 mmol/L (20-30); Chloride 111 mmol/L (98-107); Glucose 134 mg/dL (74-106); Potassium 3.3 mmol/L (3.5-5.1)
[2023-07-16 14:27] LABS: Sodium 147 mmol/L (136-145); Total Protein 6.7 g/dL (5.7-8.2)
[2023-07-16 14:34] LABS: Alkaline Phosphatase 1691 U/L (46-116)
[2023-07-16 15:03] LABS: Eosinophils % (manual) 1 (0-7); Metamyelocytes % 1
[2023-07-16 15:04] LABS: Band Neutrophils % (manual) 4; Monocytes % (manual) 21 (0-12)
[2023-07-16 15:05] LABS: Lymphocytes % (manual) 22 (10.0-50.0)
[2023-07-16 15:06] LABS: Anisocytosis Moderate
[2023-07-16 15:07] LABS: Hypochromia Slight; Platelet Estimate Markedly Decreased; Tear Drop Cells FEW
[2023-07-16] MEDS: cloNIDine HCL 0.1 MG TAB PO ONE (15:44)
[2023-07-16] MEDS: cefTRIAXone 1GM/50ML D5W 50 ML IV ONE (17:09)
[2023-07-17] MEDS: cloNIDine HCL 0.1 MG TAB PO PRN (01:45)
[2023-07-17 03:47] VITALS: BP 173/90
[2023-07-17] MEDS: cloNIDine HCL 0.1 MG TAB PO ONE (04:50)
[2023-07-17 06:05] LABS: Alanine Aminotransferase 44 U/L (7-40); Albumin 3.2 g/dL (3.2-4.8); Anion Gap 15 (5-15); Aspartate Aminotransferase 153 U/L (13-40); BUN/Creatinine Ratio 28.2 (10.0-20.0); Blood Urea Nitrogen 42 mg/dL (9-23); Calcium 6.2 mg/dL (8.7-10.4); Carbon Dioxide 24 mmol/L (20-30); Chloride 113 mmol/L (98-107); Glucose 124 mg/dL (74-106); Potassium 3.4 mmol/L (3.5-5.1)
[2023-07-17 06:06] LABS: Bilirubin, Total 0.7 mg/dL (0.2-1.0); Hematocrit 27.5 % (41.0-53.0); Hemoglobin 8.8 g/dL (13.5-17.5); Mean Corpuscular Hemoglobin 23.1 pg (28.0-32.0); Mean Corpuscular Volume 72.2 fL (80.0-100.0); Red Blood Cells 3.81 10^6/uL (4.5-5.90); Sodium 152 mmol/L (136-145); Total Protein 5.9 g/dL (5.7-8.2); White Blood Cell 6.4 10^3/uL (4.4-10.8)
[2023-07-17 06:12] LABS: Alkaline Phosphatase 1929 U/L (46-116)
[2023-07-17 06:43] LABS: Basophils % (manual) 0 (0.0-2.0); Blast Cells 0; Eosinophils % (manual) 0 (0-7); Metamyelocytes % 0; Myelocytes % 0; Promyelocytes % 0; Reactive Lymphocytes 0; Red Cell Distribution Width 21.7 % (11.8-14.3)
[2023-07-17 07:47] LABS: Erythrocyte Sedimentation Rate 101 mm/hr (0-20)
[2023-07-17 08:00] VITALS: PULSE 99; RESP 19; O2SAT 96
[2023-07-17 08:19] LABS: Band Neutrophils % (manual) 5; Lymphocytes % (manual) 27 (10.0-50.0); Monocytes % (manual) 21 (0-12)
[2023-07-17 08:20] LABS: Anisocytosis Slight; Hypochromia Slight; Platelet Estimate Markedly Decreased; Tear Drop Cells FEW
[2023-07-17 08:33] VITALS: BP 122/90; PULSE 99; RESP 19; TEMP 98.3; O2SAT 96
[2023-07-17] MEDS: cefTRIAXone 1GM/50ML D5W 50 ML IV SCH (08:37)
[2023-07-17 13:00] VITALS: BP 138/78; PULSE 86; RESP 18; TEMP 98.1; O2SAT 96
[2023-07-17] MEDS: D5W 5% 1,000 ML IV SCH (13:26)
[2023-07-17] MEDS ORDERED: oxyCODONE HCL 5MG TAB PO PRN ×2 (17:00)
[2023-07-17 18:02] LABS: Lipase 33 U/L (12-53)
[2023-07-17 18:04] LABS: Amylase 54 U/L (30-118)
[2023-07-17 18:09] LABS: INR 1.27 (0.9-1.15); Prothrombin Time 13.1 sec (9.3-11.8)
[2023-07-17 19:30] VITALS: PULSE 91; RESP 18; O2SAT 95
[2023-07-17 22:00] VITALS: BP 140/78; PULSE 94; RESP 20; TEMP 97.7; O2SAT 95
[2023-07-18] VITALS (7 sets, daily range): BP systolic 137–167; BP diastolic 74–85; PULSE 92–101; RESP 16–20; TEMP 97.7–98.6; O2SAT 92–99
[2023-07-18 06:38] LABS: Hemoglobin 7.8 g/dL (13.5-17.5); Red Blood Cells 3.37 10^6/uL (4.5-5.90); White Blood Cell 3.6 10^3/uL (4.4-10.8)
[2023-07-18 06:39] LABS: Hematocrit 24.5 % (41.0-53.0); Mean Corpuscular Hemoglobin 23.1 pg (28.0-32.0); Mean Corpuscular Hgb Conc. 31.9 g/dL (32.0-36.0); Mean Corpuscular Volume 72.6 fL (80.0-100.0)
[2023-07-18 06:43] LABS: Red Cell Distribution Width 21.8 % (11.8-14.3)
[2023-07-18 06:44] LABS: Basophils % (manual) 0 (0.0-2.0); Blast Cells 0; Eosinophils % (manual) 0 (0-7); Promyelocytes % 0; Reactive Lymphocytes 0
[2023-07-18 06:52] LABS: Alanine Aminotransferase 43 U/L (7-40); Albumin 3.3 g/dL (3.2-4.8); Anion Gap 10 (5-15); Aspartate Aminotransferase 119 U/L (13-40); BUN/Creatinine Ratio 22.8 (10.0-20.0); Bilirubin, Total 0.5 mg/dL (0.2-1.0); Blood Urea Nitrogen 39 mg/dL (9-23); Calcium 6.8 mg/dL (8.5-10.1); Carbon Dioxide 24 mmol/L (20-30); Chloride 111 mmol/L (98-107); Glucose 115 mg/dL (74-106); Potassium 3.1 mmol/L (3.5-5.1); Total Protein 6.1 g/dL (5.7-8.2)
[2023-07-18 06:54] LABS: Sodium 145 mmol/L (136-145)
[2023-07-18 07:00] LABS: Alkaline Phosphatase 1736 U/L (46-116)
[2023-07-18 10:33] LABS: Band Neutrophils % (manual) 9; Lymphocytes % (manual) 59 (10.0-50.0); Metamyelocytes % 2; Monocytes % (manual) 4 (0-12); Myelocytes % 6; Platelet Estimate Markedly Decreased
[2023-07-18 10:34] LABS: Anisocytosis Slight; Hypochromia Moderate
[2023-07-18 10:39] LABS: Ovalocytes FEW
[2023-07-18] MEDS ORDERED: MET25T PO (13:27)
[2023-07-18] MEDS: POTASSIUM CHL 20 Meq TABLET PO ONE (16:27)
[2023-07-18] MEDS: MAGNESIUM OXIDE 400 MG TAB PO ONE (18:18)
[2023-07-18] MEDS: POTASSIUM CHLORIDE 40 MEQ, LIDOCAINE 1% (LOCAL ANESTH.) 4 ML in SODIUM CHL 0.9% 250 ML IV ONE (18:18)
[2023-07-18] MEDS: LACTULOSE 20Gm/30ML SOLN PO ONE (18:18)
[2023-07-18] MEDS: MAGNESIUM OXIDE 400 MG TAB PO SCH (21:41)
[2023-07-19 05:00] VITALS: BP 103/46; PULSE 101; RESP 20; TEMP 98.7; O2SAT 95
[2023-07-19 06:11] LABS: Anion Gap 12 (5-15); Carbon Dioxide 21 mmol/L (20-30); Chloride 112 mmol/L (98-107); Potassium 3.6 mmol/L (3.5-5.1); Sodium 145 mmol/L (136-145)
[2023-07-19 06:12] LABS: Calcium 6.5 mg/dL (8.5-10.1)
[2023-07-19 06:17] LABS: BUN/Creatinine Ratio 22.3 (10.0-20.0); Blood Urea Nitrogen 40 mg/dL (9-23); Glucose 90 mg/dL (74-106)
[2023-07-19 07:43] VITALS: BP 110/63; PULSE 102; RESP 19; TEMP 98.3; O2SAT 96
[2023-07-19 08:00] VITALS: PULSE 103; RESP 18; O2SAT 97
[2023-07-19 08:06] LABS: Haptoglobin 368 mg/dL (38-329); Immunoglobulin A 404 mg/dL (61-437); Immunoglobulin G, Serum 1290 mg/dL (603-1613); Immunoglobulin M 44 mg/dL (15-143)
[2023-07-19 08:34] VITALS: BP 149/78; PULSE 103; RESP 18; TEMP 98.4; O2SAT 97
[2023-07-19] MEDS: LACTATED RINGER'S 1,000 ML IV ONE (10:17)
[2023-07-19 13:06] LABS: Kappa Lite Chain Free Serum 13.6 mg/L (3.3-19.4)
[2023-07-19 15:06] LABS: Albumin 2.5 g/dL (2.9-4.4); Alpha-1-Globulin 0.5 g/dL (0.0-0.4); Gamma Globulin 1.1 g/dL (0.4-1.8); Globulin Total 3.8 g/dL (2.2-3.9); Protein Total Serum 6.3 g/dL (6.0-8.5)
== END 2023-07-19 09:25 | disposition hospice, home (50) | DRG 871 ==
LOC: EDBD 11:21 → ER 11:21 → OVERFLOW 16:21 → WEST WING 18:16
PROVIDERS: ADMIT Internal Medicine; ATTEND Internal Medicine
PROC: 30233R1 Transfusion of Nonautologous Platelets into Peripheral Vein, Percutaneous Approach (ICD-10-PCS; principal; 2023-07-15)
DX: A41.9 Sepsis, unspecified organism (principal); I21.4 Non-ST elevation (NSTEMI) myocardial infarction; E87.0 Hyperosmolality and hypernatremia; I50.20 Unspecified systolic (congestive) heart failure; N39.0 Urinary tract infection, site not specified; I13.0 Hypertensive heart and chronic kidney disease with heart failure and stage 1 through stage 4 chronic kidney disease, or unspecified chronic kidney disease; N17.9 Acute kidney failure, unspecified; E78.5 Hyperlipidemia, unspecified; F03.90 Unspecified dementia, unspecified severity, without behavioral disturbance, psychotic disturbance, mood disturbance, and anxiety; E86.0 Dehydration; E11.22 Type 2 diabetes mellitus with diabetic chronic kidney disease; Z66 Do not resuscitate; E83.42 Hypomagnesemia; D69.6 Thrombocytopenia, unspecified; N28.1 Cyst of kidney, acquired; D50.9 Iron deficiency anemia, unspecified; N18.9 Chronic kidney disease, unspecified; K59.00 Constipation, unspecified; I71.21 Aneurysm of the ascending aorta, without rupture; Z79.899 Other long term (current) drug therapy
CPT/HCPCS: 36415; 71045; 71250; 74176; 76705; 76775; 80048; 80053; 80307; 80320; 81001; 82140; 82150; 82570; 82728; 82784; 82962; 83010; 83540; 83550; 83605; 83615; 83690; 83735; 83880; 83883; 84155; 84165; 84300; 84484; 85007; 85027; 85045; 85384; 85610; 85652; 86334; 86850; 86870; 86880; 86900; 86901; 87081; 92610; 93005; G0378; J2001; J7042